=== PATIENT | female | born 1960 | race Caucasian/White ===

== ENCOUNTER 2020-10-22 13:20 | Emergency (ER) | payer BC, OTHER ==
[2020-10-22 13:32] VITALS: BP 140/88; PULSE 75; TEMP 98; BMI 29.0
[2020-10-22] MEDS ORDERED: LIDOCAINE HCL 2% (50ML VIAL) INF ONE (14:39)
[2020-10-22] MEDS ORDERED: DIPHTH,PERTUSS(ACELL),TET 0.5 ML DISP.SYRIN IM ONE ×2 (14:42→14:43)
[2020-10-22] MEDS ORDERED: LIDOCAINE HCL 2% (20ML MULTI-DOSE VIAL) ONE (14:42)
== END 2020-10-22 17:10 | disposition home or self-care (01) ==
LOC: FER 13:20
PROC: 0HQGXZZ Repair Left Hand Skin, External Approach (ICD-10-PCS; principal; 2020-10-22)
PROC: 3E0234Z Introduction of Serum, Toxoid and Vaccine into Muscle, Percutaneous Approach (ICD-10-PCS; 2020-10-22)
DX: S61.215A Laceration without foreign body of left ring finger without damage to nail, initial encounter (principal)
CPT/HCPCS: 90715; 99284-25

== ENCOUNTER 2024-08-15 13:23 | Emergency (ER) | payer BC ==
[2024-08-15 13:45] VITALS: BP 120/88; PULSE 70; RESP 16; TEMP 97.3; BMI 26.6
== END 2024-08-15 14:13 | disposition home or self-care (01) ==
LOC: FER 13:23
DX: S09.90XA Unspecified injury of head, initial encounter (principal); W07.XXXA Fall from chair, initial encounter
CPT/HCPCS: 99283-25